=== PATIENT | male | born 2000 | race Hispanic/Latino ===

== ENCOUNTER 2024-06-24 10:23 | Emergency (ER) | payer SELFPAY ==
[2024-06-24] MEDS ORDERED: HYDROcodone/Acetaminophen 5/325 mg Tablet ONE (11:37)
== END 2024-06-24 11:52 | disposition home or self-care (01) ==
LOC: ERS 10:23
DX: M54.50 Low back pain, unspecified (principal); X50.0XXA Overexertion from strenuous movement or load, initial encounter
CPT/HCPCS: 99282

== ENCOUNTER 2024-07-01 04:44 | Emergency (ER) | payer SELFPAY ==
[2024-07-01] MEDS ORDERED: Ibuprofen 800 MG TAB ONE (05:24)
== END 2024-07-01 06:29 | disposition home or self-care (01) ==
LOC: ERS 04:44
DX: B34.9 Viral infection, unspecified (principal); Z75.8 Other problems related to medical facilities and other health care
CPT/HCPCS: 87428; 99283